=== PATIENT | female | born 1985 | race Caucasian/White ===

== ENCOUNTER 2019-04-15 12:14 | Emergency (ER) | payer OTHER, SELFPAY ==
[2019-04-15 12:15] VITALS: BP 133/78; PULSE 78; RESP 19; TEMP 37; O2SAT 99; BMI 27.6
--- NOTE | 2019-04-15 12:26 | US_ITS ---
STUDY: SECOND AND THIRD TRIMESTER OBSTETRICAL ULTRASOUND REASON FOR EXAM: Female, 34 years old BLEEDING THROUGHOUT HEAVY BLEEDING STARTED EVETTE NIGHT KNOWN SHORTENED CERVIX LMP: 12/16/2018. TECHNIQUE: Transabdominal and Transvaginal TECHNICAL QUALITY: Adequate. PRIOR ULTRASOUND: None. FINDINGS: There is a single intrauterine fetus. The fetus is in variable presentations at this time. There is demonstrated cardiac activity with a heart rate of 167 bpm. There is a normal amniotic fluid volume. The amniotic fluid index (DARRYL) appears to be within normal limits but is not measured. The placenta is fundal in location. There are Grade 0 placental changes. The cervix measures 1.7 cm in length. The bilateral adnexal regions are normal. BIOMETRY: BPD: 27 mm: 14 weeks, 6 days HC: 98 mm: 14 weeks, 4 days AC: 83 mm: 14 weeks, 5 days FL: 14 mm: 14 weeks, 2 days age by current US: 14 weeks, 5 days. EARLENE by current US: 10/09/2019. Estimated weight: 98 grams, +/- 14 grams, 35 %. Age by LMP: 14 weeks, 3 days. EARLENE by LMP: 10/11/2019. US/Transvaginal w/Preg US IMPRESSION: Single live intrauterine fetus in variable presentations with an estimated gestational age of 14 weeks and 5 days. The cervix measures 1.7 cm. Electronically Signed: Saul Sommer MD at 13:59 EST Tel , Service support ,
--- NOTE | 2019-04-15 12:28 | ED.VIS.GEN ---
History of Present Illness Chief Complaint: Vag Bld, Preg Informant: Patient Onset: Days Narrative: Patient presents thinking that she likely had a miscarriage last evening. She is currently 14 weeks . She has been following up with [facility]. She states she had bleeding throughout her and was told that she is a very thin cervix. She was going to be referred to a high credit risk review officer but has not yet been able to make it to that appointment. Patient states he had increased cramping and bleeding with clots and what she believes may be tissue over the past 2 days. She does have negative Rh blood type and last received RhoGam on March 15. She is currently G4, P0, AB 3 with 2 prior miscarriages and 1 ectopic . Past Medical History - Allergies and Home Meds Allergies/Adverse Reactions: Allergies No Known Allergies Allergy (Verified 04/15/19 12:17) Primary Care Physician: Joy Blue MD [STAFF PHYSICIAN] - Keep Charlette appointment Doctors: [facility] Prior records reviewed: Yes Past Medical History: - - Prior miscarriage and ectopic Lives: Spouse/ Significant Other Smoking Status: Current some day smoker Review of Systems General: Denies: Chills, Fever Eyes: Denies: Visual changes - bilaterally ENT: Denies: Bilateral ear pain Cardiovascular: Denies: Chest pain Respiratory: Denies: Dyspnea, Cough Gastrointestinal: Reports: Abdominal pain. Denies: Nausea, Vomiting, Diarrhea Genitourinary: Denies: Dysuria Musculoskeletal: Denies: Swelling, Extremity Pain Skin: Denies: Rash Neurological: Denies: Headache Hematologic: Denies: Easy bruising, Easy bleeding Allergy: Denies: Uticaria Physical Exam Vital Signs/Narrative: Vital Signs Temp Pulse Resp BP Pulse Ox 04/15/19 12:15 98.6 F 78 19 H 133/78 H 99 Inital Vital Signs reviewed: Yes General: Well nourished, Well developed Head: Normocephalic ENT: Moist mucous membranes Neck: Supple Cardiovascular: Regular rate, Regular rhythm Respiratory: No distress, CTA bilaterally Abdomen: Soft, Nontender Skin: Normal color Neurological: Alert, Oriented x3 Psychological: Normal affect Diagnostic/Tx/Re-eval - Medical Decision Making Patient was initially ordered blood work and ultrasound. Ultrasound was here and to the patient immediately for imaging. I received a phone call from [employer] stating that at this point the fetus is still alive, however cervix is very thin and open 1.[address] cm[address] I spoke with Dr. Anne, on-call for [employer]. She knows this patient well. She states that they have already spoken with high school art teacher and were told that there was nothing that can be done. This is an inevitable miscarriage. She advised the patient should go home with pelvic rest and follow-up tomorrow in the office as scheduled. This was explained to patient and significant other at bedside. She will be written [place] for pain. ED Disposition - Plan for ED Patient: Disposition: Home or Assisted Living Diagnosis: Inevitable spontaneous Instructions: POSSIBLE MISCARRIAGE (Threatened ) Prescriptions: Hydrocodone Bitart/Apap 5-325 [[place] 5MG-325MG] 1 tab PO Q6H PRN PRN 3 Days #10 tab PRN Reason: Pain Referrals: Joy Blue MD [STAFF PHYSICIAN] - Keep Charlette appointment
== END 2019-04-15 14:09 | disposition home or self-care (01) ==
LOC: ED 13:55
PROVIDERS: Emergency Provider Emergency Medicine
DX: O03.9 Complete or unspecified spontaneous abortion without complication (principal); F17.200 Nicotine dependence, unspecified, uncomplicated
CPT/HCPCS: 76817; 99282; A4216

== ENCOUNTER 2021-04-08 13:06 | Outpatient (CLI) | payer OTHER, SELFPAY ==
[2021-04-08 14:22] LABS: hCG Titer Quant., Serum 5069 mIU/mL (1-3)
== END 2021-04-08 23:59 | disposition home or self-care (01) ==
PROVIDERS: Referring Provider Nurse Practitioner Women's Health; Visit Provider Nurse Practitioner Women's Health
DX: O36.80X0 Pregnancy with inconclusive fetal viability, not applicable or unspecified (principal); Z3A.00 Weeks of gestation of pregnancy not specified
CPT/HCPCS: 36415; 84702; 86850; 86900; 86901

== ENCOUNTER 2021-04-09 11:59 | Day surgery (SDC) | payer OTHER, SELFPAY ==
--- NOTE | 2021-04-09 12:13 | US_ITS ---
STUDY: FIRST TRIMESTER OBSTETRICAL ULTRASOUND REASON FOR EXAM: Female, 36 years old viability -- rule out ectopic STAT wet read LMP: Unknown. TECHNIQUE: Transvaginal TECHNICAL QUALITY: Adequate. PRIOR ULTRASOUND: None. FINDINGS: There is no demonstrated intrauterine gestational sac. There is no demonstrated yolk sac. The placenta is non-visualized. There is no demonstrated embryo ( pole). The uterus measures 7.9 cm x 6.3 cm x 5.2 cm. There is no demonstrated uterine fibroid. The cervix is closed. The right ovary measures 2.4 cm x 1.4 cm x 1.2 cm. There is no right ovarian cyst. There is no visualized right adnexal mass or complex lesion. The left ovary measures 2.7 cm x 2.7 cm x 1.8 cm. There is no left ovarian cyst. Findings suggestive of a 3.7 cm x 3.4 cm x 2.6 cm left ectopic . There is no fluid in the cul de sac. US/Transvaginal w/Preg US IMPRESSION: Findings suggestive of a 3.7 cm x 3.4 cm x 2.6 cm left ectopic . Electronically Signed: Navjot Huggins MD at 14:04 EST ,
[2021-04-09 15:14] VITALS: BP 128/92; PULSE 81; RESP 16; TEMP 37.4; O2SAT 98; BMI 26.1
[2021-04-09] MEDS: Lactated Ringers 1,000 ML 125 ML IV (15:14)
[2021-04-09 15:30] LABS: Absolute Lymphocyte Count 1.88 X10^3/uL (0.83-4.51); Absolute Neutrophil Count 6.5 X10^3/uL (2.0-7.7); Basophil# 0.03 X10^3/uL; Basophil% 0.3 % (0-1); Eosinophil# 0.11 X10^3/uL; Eosinophils% 1.2 % (0-5); Hematocrit 40.4 % (37-47); Hemoglobin 14.4 g/dL (12.0-15.0); Lymphocyte # 1.88 X10^3/ul (0.83-4.51); Lymphocyte % 20.8 % (19-41); Mean Corp Hgb Conc 35.6 g/dL (32-36); Mean Corpuscular Hgb 32.6 pg (27.0-32.0); Mean Corpuscular Volume 91.4 fL (81-99); Mean Platelet Vol. 10.6 fl (6.2-12.0); Monocyte# 0.52 X10^3/uL; Monocyte% 5.8 % (0-10); NRBC Flagged by Analyzer 0 % (0-5); Neutrophil # 6.46 X10^3/uL (2.7-7.7); Neutrophil % 71.6 % (47-70); Platelet Count 318 K/mm3 (150-450); RBC Distribution Width CV 11.9 % (11.6-14.6); RBC Distribution Width SD 39.8 fl (35.1-43.9); Red Blood Count 4.42 M/mm3 (4.2-5.4)
--- NOTE | 2021-04-09 15:47 | PCM.HP.BLA ---
History and Physical Date of Admission: 04/09/21 Date of Service: 04/09/21 MR#:[id number]:[id number]: SHAVONNE KU [facility] #:[id number]:[id number] Provider:Dr. Patience Us, DOAge/Sex: 36/F [facility] Vital Signs 04/09/21 13:11 Height 5 ft 8 in Weight: 171 lb BMI 25.9 BP 140/92 H Intake Visit Reasons: eptopic? Ob Gyn Required: No Is patient in pain?: No Allergies No Known Allergies Allergy (Verified 04/08/21 13:50) Medications minerals [Multi Minerals] 1 tab PO DAILY 04/09/21 [History Confirmed 04/09/21] Post menopausal: No Patient : Yes : No PFSH Medical History Marijuana use Smoker Surgical History H/O unilateral salpingectomy Family History Grandmother Breast cancer Social History Smoking Status: Light Smoker (<10/day) alcohol intake: never substance use type: marijuana caffeine: Yes what type of physical activity do you participate in: none seatbelt use: always do you feel safe at home: Yes additional social history: -Re[place] HPI eptopic? Details: SHAVONNE KU is a 36 year old who presents for preop exam due to finding of cornual ectopic on ultrasound. The ectopic is noted in the left horn of the uterus. There is no heart beat however the quant yesterday was 5000. The patient was given alternative options of methotrexate and declines. She has a h/o right sided ectopic in 2014 and this was also operated on by Dr. Denise. The patient has had 3 miscarriages including a 13 week loss at home. She states I wish you could just take everything out because at this point I no longer want to ever try to have another baby. Pregancy History 4 Elective abortions 1 Hx Para 0 Spontaneous abortions 3 Hx # Term Pregnancies Ectopic pregnancies 1 Hx # Pregnancies Multiple births # of living children ROS Const ROS Unobtainable: All systems reviewed & are unremarkable except as noted in H Resp Resp: Reports system reviewed and no additional complaints, except as documented; Denies cough GI GI: Reports as per HPI Psych Psych: Reports system reviewed and no additional complaints, except as documented Exam Const General: cooperative, healthy appearing, comfortable and no acute distress Resp Effort & Inspection: normal respiratory effort Skin General: no rashes or lesions noted Psych Appearance: grossly normal Speech and Movement: speech and movement normal Coding Level of Care Code Off vis,est,level 4 Diagnoses , ectopic, cornual or cervical O00.80 Assessment and Plan Assessment and Plan (1) , ectopic, cornual or cervical: Status: Acute Plan - Dr. Patience Us, DO: plan for laparoscopic resection today. plan to inject dilute vasopressin and resect the cornua. Dr. Denise to assist. UPDATE- I have seen the patient and performed any clinically relevant updates to the history and physical exam. Patience Us DO
--- NOTE | 2021-04-09 15:47 | PCM.DC ---
Discharge Instructions Diet Discharge Diet: No restrictions Activity Discharge Activity: Return to Normal Activity, May Not Drive (for two weeks or while taking narcotic pain medications.), May Shower and May Take a Tub Bath (in 7 days) May resume sexual activity in: 1 week Weight Bearing Status: Full weight bearing Dressing / Incision Call your doctor if you observe: Using more than 1 pad per hour, Shortness of breath, Chest pain and Uncontrolled pain Suture Line Care: Avoid Pulling/Pushing and Avoid Pinching/Bending Remove Dressing in: 1 week (if present) Cleanse incision/area with: Soap & Water and Keep Dressing Clean & Dry Follow Up Care Please Follow Up With: Patience Us DO When: Call to make an appointment with your doctor for a follow up incision check in 1-2 weeks. Test Results: Test results from this visit will be discussed in further detail at your follow-up appointment, if applicable. Discharge Plan Admission Primary Reason for Your Visit: ectopic Attending Provider: Patience Us Primary Care Provider: Care Physician,Luli Primary Discharge Orders/Prescriptions Prescriptions: New oxycodone-acetaminophen [Percocet] 5-325 mg tablet 1 tab PO Q4H PRN (Reason: pain) 7 Days Qty: 20 RF: 0 ibuprofen 800 mg tablet 800 mg PO Q8H PRN (Reason: pain) 7 Days Qty: 30 RF: 0 Continued minerals Tablet 1 tab PO DAILY RF: 0 Referrals / Follow Up: Care Physician,No Primary [Primary Care Provider] - Disposition Disposition (needs filled in before D/C Order can be placed): Home, Self Care
[2021-04-09] MEDS: Cefotetan 2 GM in 0.9% NS 100 ML IV (17:04)
[2021-04-09] MEDS: Bupivacaine 0.25% 30 ML Vial (17:30)
--- NOTE | 2021-04-09 17:57 | OP.PCM_ITS ---
Problems Associated Problem List Diagnoses (1) , ectopic, cornual or cervical: (2) Rh negative status during : Operative Report Date of Procedure: 04/09/21 Preoperative diagnosis: Left ectopic Postoperative diagnosis: Partially ruptured left ovarian ectopic , endometriosis Surgeon: Dr. Patience Carr Circuit Rider: Dr. Krsiti Denise Procedure: Laparoscopic left salpingo-oophorectomy Complications: None Estimated blood loss: 20 cc Fluids: 500 cc crystalloid Urine output: 25 cc Findings: Bleeding left fallopian tube ruptured left ovarian ectopic, endometriosis of the left fallopian tube, surgical absence of right fallopian tube Procedure: The patient was brought to the operating room where general anesthesia was found to be adequate she was prepped and draped in the normal sterile fashion. Her legs were placed in stirrups a weighted speculum was placed in the vagina. The anterior lip of the cervix was grasped with a single- tooth tenaculum and the uterus was gently sounded to approximately 8 cm. A uterine manipulator was inserted into the cervix. The single-tooth tenaculum was removed the lid speculum was removed. Gloves were changed and attention was turned towards the abdomen. After quarter percent Marcaine injection a 5 mm incision was made with a scalpel next a 5 mm trocar was inserted into the abdomen using direct visualization with the laparoscope. CO2 gas was used to insufflate the abdomen the patient was placed in Trendelenburg position, left and right lower quadrant 5 mm trochars was also inserted under direct visualization. The uterus was manipulated to the left and right side and there was noted to be a moderate amount of endometriosis on the left fallopian tube blood fallopian tube was noted to be bleeding with this slight manipulation and elevation of the fallopian tube there was noted to be a mass on the ovary which appeared to be the ectopic. The ovary was noted to be bleeding and the ectopic was noted to be ruptured. Using the LigaSure device the infundibulopelvic ligament was cauterized and cut. The fallopian tube was elevated and cauterized and cut due to bleeding. Both the fallopian tube and the ovarian ligament were then cauterized and cut and removed from the uterus. There was also noted to be some products of conception adherent to the descending colon this was then irrigated using sterile saline. Suction irrigation was then performed and no bleeding was noted from the site. The fallopian tube and ovary were placed in an Endo Catch bag and removed through the umbilical port site without difficulty and after stretching the fascia using a Ally clamp. After full removal of the bag and specimen, the fascial site was closed using an 0 Vicryl suture and also using the Clarence Abdi suture closure device. Good closure was noted excellent hemostasis was noted at all operative sites. The the remaining trochars were removed and CO2 gas was escape from the abdomen. The skin was closed with a 4-0 Monocryl subcuticular stitch and sealed with surgical glue. The vaginal manipulator was removed. The patient tolerated the procedure well sponge lap and needle counts were correct x2 and she is now being brought to the recovery room in stable condition Multi Select Codes Urinary/Genital Urinary/Genital CPT Codes: 45540 Treat ectopic lapro w/ salpingectomy (and with oophorectomy)
[2021-04-09 18:07] VITALS: BP 123/89; BP 128/92; PULSE 58; RESP 16; TEMP 37; O2SAT 100
[2021-04-09 18:15] VITALS: BP 128/92; BP 130/95; PULSE 78; RESP 16; O2SAT 100
[2021-04-09 18:30] VITALS: BP 128/92; BP 132/88; PULSE 81; RESP 18; O2SAT 100
[2021-04-09 18:36] VITALS: BP 123/93; BP 128/92; PULSE 74; RESP 18; TEMP 37; O2SAT 98
[2021-04-09] MEDS: HYDROcodone Bitartrate/Apap 5/325 Tablet PO (18:52)
[2021-04-09 19:21] VITALS: BP 126/97; BP 128/92; PULSE 74; RESP 18; TEMP 36.4; O2SAT 99
== END 2021-04-09 23:59 | disposition home or self-care (01) ==
LOC: US 13:39 → SDC 13:41 → AC 14:32
PROVIDERS: Referring Provider Obstetrics & Gynecology; Visit Provider Obstetrics & Gynecology
PROC: 10T24ZZ Resection of Products of Conception, Ectopic, Percutaneous Endoscopic Approach (ICD-10-PCS; CPT 59150; principal; 2021-04-09 16:15)
DX: O00.202 Left ovarian pregnancy without intrauterine pregnancy (principal); N80.2 Endometriosis of fallopian tube; F17.200 Nicotine dependence, unspecified, uncomplicated; F12.90 Cannabis use, unspecified, uncomplicated; Z67.91 Unspecified blood type, Rh negative
CPT/HCPCS: 59151; 00840; 76817; 85025; 86850; 86870; 86900; 86901; 87426; 88305; J7120; J2405

== ENCOUNTER 2021-04-09 13:31 | Outpatient (CLI) | payer OTHER, SELFPAY ==
--- NOTE | 2021-04-09 | OV_PTH ---
PATIENT: SHAVONNE KU LOC: [facility]#:[id number] AGE/SX: 36/F ROOM: RE04/09/[address]: Dr. Patience Us DO : 1985 BED: DIS: 04/09/2021 SPEC #: [id number] RECD: 04/10/21 10:13 STATUS: SUSIE CLARE #: [id number] ARTURO: 04/09/21 00:[address]: Patience Us DEPT: SURGICAL PATHOLOGY RECD BY: Stas Alvarez ENTERED: 04/10/21 10:14 SP TYPE: OVARY OTHR DR: No Primary Care Phys Tissues: ECTOPIC PREG Procedures: Surgery Specimen Level IV HEADER OPERATION: Left salpingo-oophorectomy with removal ectopic PRE-OP DIAGNOSIS: Ectopic, cornual or cervical TISSUE SUBMITTED: Left tube and ovary MICROSCOPIC DIAGNOSIS Left fallopian tube and ovary: Fallopian tube with decidua and immature chorionic villi (ectopic ). Ovary ? follicular and corpus luteal cysts. SJ:simran 04/14/2021 COMMENT Detached fragments of Immature chorionic villi are also noted adjacent to the fallopian tube and ovary, consistent with ruptured ectopic . Case has been reviewed in consultation with Dr. Krueger who concurs with the above diagnosis. IDC:PORTILLO MICROSCOPIC DESCRIPTION Slides are reviewed. GROSS DESCRIPTION Received in fixative is one container labeled with the patient's name and designated left tube and ovary. The specimen consists of a light garcia ovary measuring 4 x 2.5 x 1.5 cm. The external surface is smooth and glistening. Serial sections reveal multiple cysts ranging in size from 0.6 to 1.5 cm. Present free in the container is a fallopian tube measuring 5.5 cm in length and 0.7 cm in average diameter. No mass lesions are identified. Caramel Cutter Hand sections are submitted in three cassettes as follows: 1 & 2 ? ovary, 3 ? fallopian tube. / AM:simran 04/10/2021 The rest of the specimen is submitted in five more cassettes, 4-8. Cassettes 6-8 contain the rest of the ovary. / KERI:simran 04/13/2021 TC:5 CPT: 70070
== END 2021-04-09 23:59 | disposition home or self-care (01) ==
LOC: LABSPEC 04-29 13:31
PROVIDERS: Visit Provider Obstetrics & Gynecology
DX: O00.102 Left tubal pregnancy without intrauterine pregnancy (principal)
CPT/HCPCS: 88305